=== PATIENT | male | born 1995 | race Two or more races ===

== ENCOUNTER → 2017-01-19 | Outpatient (REF) | payer OTHER | LOC: M SMT 12:53 | PROVIDERS: ATTEND Nurse Practitioner Women's Health | DX: N50.819 Testicular pain, unspecified (principal) ==

== ENCOUNTER → 2018-01-04 | Outpatient (REF) | payer OTHER ==
[2018-01-04 14:35] LABS: APPEARANCE, URINE CLEAR (CLEAR); BACTERIA, URINE AUTO NEGATIVE (NEGATIVE); BILIRUBIN, URINE AUTO NEGATIVE (NEGATIVE); BLOOD, URINE BLOOD NEGATIVE (NEGATIVE); COLOR, URINE STRAW (YELLOW); GLUCOSE, URINE (UA) AUTO NEGATIVE (NEGATIVE); KETONE, URINE AUTO NEGATIVE (NEGATIVE); LEUKOCYTE ESTERASE, URINE AUTO NEGATIVE (NEGATIVE); NITRITE, URINE AUTO NEGATIVE (NEGATIVE); PROTEIN, URINE AUTO NEGATIVE (NEGATIVE); RBC, URINE AUTO 0 /HPF (0-3); SPECIFIC GRAVITY URINE AUTO 1.006 (1.002-1.035); SQUAMOUS EPITHELIAL CELL UR AU 0 /HPF (0-6); UROBILINOGEN, URINE AUTO 0.2 mg/dL (0.0-2.0); WBC, URINE AUTO 0 /HPF (0-3)
== END ==
LOC: M SMT 13:09
DX: N50.819 Testicular pain, unspecified (principal)

== ENCOUNTER → 2018-01-10 | Outpatient (CLI) | payer OTHER | LOC: M RAD 13:22 | DX: N50.819 Testicular pain, unspecified (principal) ==

== ENCOUNTER → 2025-10-01 | Outpatient (CLI) | payer MEDICAID, OTHER ==
[2025-10-01 15:02] LABS: BASO # 0.0 10^3/uL (0.0-0.2); BASO % 0.5 % (0.0-1.0); EOS # 0.1 10^3/uL (0.0-0.5); EOS % 1.6 % (0.0-3.0); LYMPH # 1.4 10^3/uL (1.5-5.0); LYMPH % 22.5 % (24.0-44.0); MONO # 0.6 10^3/uL (0.0-0.8); MONO % 9.5 % (2.0-8.0); NEUTROPHILS # 4.1 10^3/uL (1.5-8.5); NEUTROPHILS % 65.6 % (36.0-66.0)
== END ==
LOC: M PLALAB 09:28
PROVIDERS: ATTEND Internal Medicine Infectious Disease
DX: M25.561 Pain in right knee (principal); M25.562 Pain in left knee